=== PATIENT | male | born 1970 | race Caucasian/White ===

== ENCOUNTER 2019-11-29 08:24 | Emergency (ER) | payer OTHER ==
[~2019-11-29] VITALS: Ht 175.3 cm; Wt 97.5 kg
[~2019-11-29 08:24] MED LIST: AMOXICILLIN 50500 MG PO; FLEXERIL PO; NOHOMEMEDICATIONS
[2019-11-29 09:19] VITALS: BP 142/74
== END 2019-11-29 09:20 | disposition home or self-care (01) ==
LOC: M.ERS 08:24
DX: S93.401A Sprain of unspecified ligament of right ankle, initial encounter (principal); F17.210 Nicotine dependence, cigarettes, uncomplicated; F12.10 Cannabis abuse, uncomplicated; W50.0XXA Accidental hit or strike by another person, initial encounter; Y93.72 Activity, wrestling; Y92.89 Other specified places as the place of occurrence of the external cause; Y99.8 Other external cause status